=== PATIENT | male | born 1955 | race Caucasian/White ===

== ENCOUNTER 2016-10-09 06:40 | Emergency (ER) | payer OTHER ==
[~2016-10-09] VITALS: Ht 170.2 cm; Wt 87.9 kg
[~2016-10-09 06:40] MED LIST: BACTRIM,SEPT1 TABLET PO; ECOTRIN325 MG PO; Ecotrin PO; HYTRIN1 MG PO; LIPITOR20 MG PO; LOPRESSOR25 MG PO; Livalo PO; Lopressor PO; NAPROSYN500 MG PO; NORCO 5/3251 TABLET PO; Plavix PO; TERAZOSIN HCL1 MG PO; Xanax PO; ZETIA10 MG PO; ZOFRAN ODT4 MG PO
[2016-10-09] MEDS ORDERED: BACLOFEN10 MG PO (07:40)
[2016-10-09] MEDS ORDERED: ULTRAM50 MG PO (07:41)
[2016-10-09 07:50] VITALS: BP 135/65
== END 2016-10-09 07:52 | disposition home or self-care (01) ==
LOC: EME 06:40
DX: S22.41XA Multiple fractures of ribs, right side, initial encounter for closed fracture (principal); R07.89 Other chest pain; W01.0XXA Fall on same level from slipping, tripping and stumbling without subsequent striking against object, initial encounter; Z95.5 Presence of coronary angioplasty implant and graft; Z79.82 Long term (current) use of aspirin; Z87.891 Personal history of nicotine dependence
CPT/HCPCS: 71101; 99281; 99283; J1885

== ENCOUNTER 2017-05-11 12:01 | Emergency (ER) | payer OTHER ==
[~2017-05-11] VITALS: Ht 170.2 cm; Wt 83.8 kg
[~2017-05-11 12:01] MED LIST changes: +BACLOFEN10 MG PO; +ULTRAM50 MG PO
[2017-05-11 14:44] VITALS: BP 126/64
== END 2017-05-11 14:44 | disposition home or self-care (01) ==
LOC: EME 12:01
DX: S61.201A Unspecified open wound of left index finger without damage to nail, initial encounter (principal); W27.5XXA Contact with paper-cutter, initial encounter; Y93.89 Activity, other specified; Z23 Encounter for immunization; E78.5 Hyperlipidemia, unspecified; I10 Essential (primary) hypertension; I25.2 Old myocardial infarction; Z72.0 Tobacco use